=== PATIENT | male | born 1970 | race Two or more races ===

== ENCOUNTER 2024-08-18 22:07 | Inpatient (IN) | payer OTHER ==
[2024-08-18 22:26] VITALS: BMI 29.2
[2024-08-18] MEDS ORDERED: BISMUTH SUBSALICYLATE 524 MG/30 ML PO PRN (23:06)
[2024-08-18] MEDS ORDERED: MAG HYDROX/AL HYDROX/SIMETH 30 ML UNIT-DOSE CUP PO PRN (23:06)
[2024-08-18] MEDS ORDERED: LOPERAMIDE HCL 2 MG CAPSULE PO PRN (23:06)
[2024-08-18] MEDS ORDERED: guaiFENesin 600 MG TABLET.ER (FP) PO PRN (23:06)
[2024-08-18] MEDS ORDERED: MAGNESIUM HYDROX 2400MG/30ML ORAL SUSPENSION 30 ML CUP PO PRN (23:06)
[2024-08-18] MEDS ORDERED: ONDANSETRON *ODT* 4 MG TABLET SL PRN (23:06)
[2024-08-18] MEDS ORDERED: NALOXONE (NARCAN) HCL 4 MG/0.1 ML SPRAY NS PRN (23:06)
[2024-08-18] MEDS ORDERED: BENZONATATE 200 MG CAPSULE PO PRN (23:06)
[2024-08-18] MEDS ORDERED: BENZOCAINE/MENTHOL (CHLORASEPTIC ) LOZENGE MM PRN (23:06)
[2024-08-18] MEDS ORDERED: IBUPROFEN 400 MG TABLET (FP) PO PRN (23:06)
[2024-08-18] MEDS ORDERED: POLYETHYLENE GLYCOL (HEALTHYLAX) 3350 17 GM PACKET PO PRN (23:06)
[2024-08-18] MEDS ORDERED: INSULIN (NOVOLOG) ASPART 100 UNITS/ML 10ML VIAL ONE (23:33)
[2024-08-18] MEDS: INSULIN ASPART SLIDING SCALE (NOVOLOG) 1 VIAL SQ SCH (23:41)
[2024-08-18] MEDS: METOPROLOL TARTRATE 25 MG TABLET (FP) PO ONE (23:41)
[2024-08-19] MEDS: NALTREXONE HCL 50 MG TABLET PO ONE (09:21)
[2024-08-19] MEDS: PRENATAL VITAMINS W/ FOLIC ACID TABLET (FP) PO SCH (09:21)
[2024-08-19 11:39] LABS: MCHC 30.6 g/dl (32.3-36.5); MEAN CELL VOLUME 79.1 fl (79.0-92.2); MEAN PLT VOLUME 9.8 fl (9.4-12.4); RDW 15.8 % (12.2-16.1)
[2024-08-19 13:13] LABS: CO2 27 mmol/L (21-32); GLUCOSE,RANDOM 332 mg/dL (74-106)
[2024-08-19 13:16] LABS: CREATININE 1.2 mg/dL (0.55-1.3); SGOT/AST 24 U/L (15-37); SGPT/ALT 21 U/L (13-61)
[2024-08-19 13:17] LABS: TOT PROT 7.9 g/dl (6.4-8.2)
[2024-08-19 13:18] LABS: ALK PHOS 153 U/L (45-117)
[2024-08-19] MEDS ORDERED: INSULIN (NOVOLOG) ASPART 100 UNITS/ML 10ML VIAL ONE (17:55)
[2024-08-19] MEDS: DICYCLOMINE HCL 10 MG CAPSULE PO PRN (17:57)
[2024-08-19] MEDS: THIAMINE 100 MG TABLET PO SCH (22:39)
[2024-08-19] MEDS: MELATONIN 5 MG TABLETS PO SCH (22:42)
[2024-08-20] MEDS: NALTREXONE HCL 50 MG TABLET PO SCH (09:21)
[2024-08-20 16:22] LABS: ABSOLUTE IMMATURE GRANULOCYTES 0.04 x10^3/uL (0.0-0.031); BASOPHILS # 0.08 x10^3/uL (0.01-0.08); EOSINOPHIL % 1.8 % (0.8-7.0); EOSINOPHILS # 0.18 x10^3/uL (0.04-0.54); MCHC 30.1 g/dl (32.3-36.5); MEAN CELL VOLUME 80.2 fl (79.0-92.2); MEAN PLT VOLUME 10.7 fl (9.4-12.4); MONOCYTE # 1.40 x10^3/uL (0.30-0.82); MONOCYTE % 13.7 % (5.3-12.2); RDW 15.9 % (12.2-16.1)
[2024-08-20] MEDS ORDERED: INSULIN (NOVOLOG) ASPART 100 UNITS/ML 10ML VIAL ONE (17:03)
[2024-08-21] MEDS ORDERED: INSULIN (NOVOLOG) ASPART 100 UNITS/ML 10ML VIAL ONE ×2 (05:44→16:56)
[2024-08-22] MEDS ORDERED: INSULIN (NOVOLOG) ASPART 100 UNITS/ML 10ML VIAL ONE ×3 (05:15→22:42)
[2024-08-22] MEDS: ACETAMINOPHEN 325 MG TABLET (FP) PO PRN (06:16)
[2024-08-22] MEDS: METHOCARBAMOL 500 MG TABLET PO PRN (21:51)
[2024-08-22] MEDS: INSULIN ASPART SLIDING SCALE (NOVOLOG) 1 VIAL SQ SCH (22:56)
[2024-08-23] MEDS ORDERED: INSULIN (NOVOLOG) ASPART 100 UNITS/ML 10ML VIAL ONE ×4 (06:18→22:28)
[2024-08-23 11:34] LABS: MCHC 30.3 g/dl (32.3-36.5); MEAN CELL VOLUME 79.7 fl (79.0-92.2); MEAN PLT VOLUME 9.9 fl (9.4-12.4); RDW 16.2 % (12.2-16.1)
[2024-08-23 11:49] LABS: CO2 30.0 mmol/L (21-32); GLUCOSE,RANDOM 279.0 mg/dL (74-106)
[2024-08-23 11:52] LABS: CREATININE 1.1 mg/dL (0.55-1.3); SGOT/AST 18.0 U/L (15-37); SGPT/ALT 19.0 U/L (13-61)
[2024-08-23 11:54] LABS: TOT PROT 6.7 g/dl (6.4-8.2)
[2024-08-23 11:55] LABS: ALK PHOS 127.0 U/L (45-117)
[2024-08-23] MEDS: IBUPROFEN 600 MG TABLET (FP) PO PRN (18:02)
[2024-08-23] MEDS: hydrOXYzine PAMOATE 25 MG CAPSULE (FP) PO PRN (22:22)
[2024-08-24] MEDS ORDERED: INSULIN (NOVOLOG) ASPART 100 UNITS/ML 10ML VIAL ONE ×2 (06:35→11:44)
[2024-08-24 12:48] VITALS: BP 109/76; PULSE 89; RESP 17; TEMP 97.4
== END 2024-08-24 13:20 | disposition other institution (70) | DRG 775 ==
LOC: YASAS 22:07 → Y6N 23:54
PROVIDERS: ADMIT Neuromusculoskeletal Medicine & OMM; ATTEND Family Medicine Addiction Medicine
PROC: HZ2ZZZZ Detoxification Services for Substance Abuse Treatment (ICD-10-PCS; principal; 2024-08-18)
DX: F10.230 Alcohol dependence with withdrawal, uncomplicated (principal); F17.210 Nicotine dependence, cigarettes, uncomplicated; F10.282 Alcohol dependence with alcohol-induced sleep disorder; D72.829 Elevated white blood cell count, unspecified; I10 Essential (primary) hypertension; E11.9 Type 2 diabetes mellitus without complications; Z59.00 Homelessness unspecified; Z56.0 Unemployment, unspecified
CPT/HCPCS: 36415; 80053; 80305; 80307; 82140; 82962; 85025; 85027; 86780; 87811; 93005; 93010

== ENCOUNTER 2024-08-24 13:28 | Inpatient (IN) | payer OTHER | END 2024-08-24 15:05 | disposition left against medical advice (07) | DRG 770 | LOC: YASAS 13:28 → Y5N 13:29 | PROVIDERS: ADMIT Psychiatry & Neurology Pain Medicine; ATTEND Psychiatry & Neurology Pain Medicine | PROC: HZ42ZZZ Group Counseling for Substance Abuse Treatment, Cognitive-Behavioral (ICD-10-PCS; principal; 2024-08-24) | DX: F10.20 Alcohol dependence, uncomplicated (principal) ==